=== PATIENT | female | born 2000 | race Caucasian/White ===

== ENCOUNTER 2024-11-07 01:07 | Inpatient (IN) ==
[2024-11-07] MEDS ORDERED: ACETAMINOPHEN 500 MG TAB PO PRN (01:47)
[2024-11-07] MEDS ORDERED: LIDOCAINE 1% LOCAL 20 ML VIAL INFIL PRN (01:47)
--- NOTE | 2024-11-07 01:53 | History & Physical Report ---
Date of Service November 07, 2024 Assessment & Plan (1) Spontaneous rupture of amniotic membranes: Plan: 23-year-old at 39 weeks and 5 days of gestation presenting today with spontaneous rupture of membranes, Vital signs stable afebrile, heart rate reassuring, GBS negative, Cervix favorable but not in labor, Discussed the findings I recommended induction/augmentation with oxytocin per protocol, patient desires to ambulate and not start oxytocin for few hours. If she is not in labor for the next 3 hours she wants to start oxytocin, Plans for epidural for pain, Admit, monitor, labs, expect management for now and then oxytocin per protocol if noted cervical change, All questions were answered. (2) with 39 completed weeks gestation: (3) Class 2 obesity due to excess calories without serious comorbidity with body mass index (BMI) of 37.0 to 37.9 in adult: History of Present Illness Primary Care Provider: NO PCP Patient is a 23-year-old G1, P0 at 39 weeks and 5 days of gestation who felt a gush of fluid leakage around 00 15 a.m. and continued with trickling. Patient states it was a large gush made her underwear, pants and sheet of the bed wet. It has been clear, no vaginal bleeding. She is feeling mild cramping but not real painful contractions. She reports good movements. She denies headaches, change in her vision, nausea vomiting, fever chills, leg pain. Her has been uncomplicated except 1. obesity during 2. history of depression, not on meds, 3. Rh-, received RhoGAM GBS negative Allergies Allergy/AdvReac Type Severity Reaction Status Date / Time No Known Allergies Allergy Verified 11/07/24 01:27 Patient History Medical History Class 2 obesity due to excess calories without serious comorbidity with body mass index (BMI) of 37.0 to 37.9 in adult Anemia Migraine without aura and with status migrainosus, not intractable Gastroesophageal reflux disease without esophagitis Moderate episode of recurrent major depressive disorder Social History Smoking Status: Never smoker Hx Alcohol Use: Yes Hx Substance Use: No marital status: Feels Safe at Home: Yes [employer] History No history of STDs: History of chlamydia, gonorrhea, herpes Review of Systems as per Subjective / HPI Physical Exam Constitutional: WD/WN, vitals as above well developed, well nourished and comfortable Genitourinary: normal external appearance OB Exam Abdomen: + vertex Manual OB Exam: + cervical dilation 3 cm, + cervical effacement 70% and + station high ( 1 history but engaged) OB Exam Monitor Tracing: + external uterine monitor used and + category I grossly ruptured, nitrazine positive Results & Data Vital Signs (Past 12 Hours) Vital Signs Pulse BP 11/07/24 01:24 79 143/74 H
[2024-11-07 02:57] LABS: Hematocrit (blood only) 34.8 % (37.0-47.0); Hemoglobin 11.7 g/dl (12.0-16.0); Mean Corpuscular Hemoglobin 29.5 pg (25.0-34.0); Mean Corpuscular Volume 87.9 fL (80.0-100.0); Platelet Count 205 K/uL (130-400); RDW Standard Deviation 43.8 fL (36.4-46.3); Red Blood Count 3.96 M/uL (4.20-5.40); White Blood Count 9.40 K/ul (4.8-10.8)
[2024-11-07 03:16] LABS: Alanine Aminotransferase 6.0 U/L (7-52); Albumin Globulin Ratio 1.2 (0.9-2); Albumin Level 3.4 gm/dl (3.4-5.0); Alkaline Phosphatase 146.0 U/L (34-104); Anion Gap 9.0 (3-11); Bilirubin,Total 0.3 mg/dl (0.2-1.0); Blood Urea Nitrogen 11.0 mg/dl (6-23); Calcium 9.9 mg/dl (8.6-10.3); Carbon Dioxide 22.0 mmol/L (21-32); Chloride 105.0 mmol/L (98-107); Creatinine Clr Calc Pharmacy 169.2 ml/min; Globulin 2.9 gm/dl (2.5-4.0); Glucose 90.0 mg/dl (70-99(Fasting)); Potassium 3.5 mmol/L (3.5-5.1); Sodium 136.0 mmol/L (136-145); Total Protein 6.3 gm/dl (6.0-8.3)
[2024-11-07] MEDS: LACTATED RINGER'S 1,000 ML IV PRN (05:27)
--- NOTE | 2024-11-07 05:47 | Anesthesiology Consultation ---
Date of Service November 07, 2024 Assessment & Plan (1) Encounter for pre-operative examination: Chart Review Chart Review: Acceptable Risk for Labor Epidural History Height/Weight Height: 5 ft 3 in Weight: 95.98 kg Allergies Allergy/AdvReac Type Severity Reaction Status Date / Time No Known Allergies Allergy Verified 11/07/24 01:27 Medications Home Medications Medication Instructions Recorded Confirmed Last Taken aspirin 81 mg chewable tablet 81 mg PO 11/07/24 Unknown famotidine 10 mg tablet 10 mg PO DAILY 11/07/24 11/07/24 Unknown ferrous sulfate 325 mg (65 mg 325 mg PO DAILY 11/07/24 11/07/24 Unknown iron) tablet (iron) magnesium 100 mg capsule 100 mg PO DAILY 11/07/24 11/07/24 Unknown potassium 99 mg tablet mg 11/07/24 Unknown [id number] 1 mg tab PO 11/07/24 Unknown tablet Active Medications Generic Name Dose Route Start Last Admin Trade Name Freq PRN Reason Stop Dose Admin Lactated Ringer's 1,000 mls @ 150 mls/hr 11/07/24 01:47 11/07/24 05:27 Lr IV 11/09/24 01:46 999 mls/hr .[id number] PRN Administration L&D Protocol Protocol Past Medical History Medical History Class 2 obesity due to excess calories without serious comorbidity with body mass index (BMI) of 37.0 to 37.9 in adult Anemia Migraine without aura and with status migrainosus, not intractable Gastroesophageal reflux disease without esophagitis Moderate episode of recurrent major depressive disorder Social History Smoking Status: Former smoker Smoking End Date: Pt stopped once found out Hx Alcohol Use: Yes Hx Substance Use: No substance use type: does not use Physical Exam Vital Signs Last Vital Signs Temp 36.9 C 11/07/24 01:29 Pulse 92 H 11/07/24 05:44 Resp 20 11/07/24 01:29 BP 154/81 H 11/07/24 05:13 Pulse Ox 96 11/07/24 05:44 Testing Laboratory Results 11/07/24 02:21 11/07/24 02:21 Blood Type A Negative 11/07/24 02:21 Antibody Screen NEGATIVE 11/07/24 02:21
[2024-11-07] MEDS: LIDOCAINE 2%/EPINEPHRINE 1:200,000 20 ML PF ONE (06:10)
[2024-11-07] MEDS: fentANYL 2 MCG/ML BUPIVacaine 0.125%-NSS 100ML BAG ONE (06:10)
[2024-11-07] MEDS: BUPIVACAINE 0.25% PF 30 ML VIAL ONE (06:11)
[2024-11-07] MEDS ORDERED: SODIUM CHLORIDE 0.9% PF INJ 10 ML VIAL EPI PRN (06:17)
[2024-11-07] MEDS ORDERED: ROPIVACAINE 0.5% PF 5 MG/ML 20 ML VIAL EPI PRN (06:17)
[2024-11-07] MEDS ORDERED: BUPIVACAINE 0.25% PF 30 ML VIAL EPI PRN (06:17)
[2024-11-07] MEDS ORDERED: NALOXONE HCL 1 MG in SODIUM CHLORIDE 0.9% 1,000 ML IV PRN (06:17)
[2024-11-07] MEDS ORDERED: NALOXONE HCL 0.4 MG/1 ML VIAL/CARP IV PRN (06:17)
[2024-11-07] MEDS ORDERED: LIDOCAINE 2% MPF LOCAL 5 ML VIAL EPI PRN (06:17)
[2024-11-07] MEDS: SODIUM CHLORIDE 0.9% PF INJ 10 ML VIAL ONE (06:18)
[2024-11-07] MEDS: SODIUM CHLORIDE 0.9% PF INJ 10 ML VIAL EPI STA (06:33)
[2024-11-07] MEDS: BUPIVACAINE 0.25% PF 30 ML VIAL EPI STA (06:33)
[2024-11-07] MEDS: LIDOCAINE 2%/EPINEPHRINE 1:200,000 20 ML PF EPI STA (06:33)
[2024-11-07] MEDS: ONDANSETRON INJ 2 MG/ML 2 ML VIAL IV PRN (07:09)
[2024-11-07] MEDS: OXYTOCIN 30 UNITS/NSS 30 UNITS/500 ML BAG IV PRN (08:27)
[2024-11-07] MEDS: CALCIUM CARBONATE 500 MG CHEWABLE TAB PO PRN (08:42)
[2024-11-07] MEDS: fentANYL 2 MCG/ML BUPIVacaine 0.125%-NSS 100ML BAG EPI PRN (13:10)
--- NOTE | 2024-11-07 21:37 | Labor Progress Brief Note ---
Date of Service November 07, 2024 Assessment & Plan Admission and Anticipated Discharge Date Admission Date: November 07, 2024 Physical Exam Genitourinary: Manual OB Exam: + cervical dilation 8 cm and 9 cm, + cervical effacement 100%, + station 0 and + amniotic fluid clear OB Exam Monitor Tracing: + external FHT monitor used, + external uterine monitor used, + category I and + normal FHT variability will increase Oxytocin up to 30 mU. Results & Data Vital Signs (Past 12 Hours) Vital Signs Temp Pulse Resp BP Pulse Ox 11/07/24 21:34 115 H 129/65 93 11/07/24 21:29 108 H 95 11/07/24 21:24 108 H 97 11/07/24 21:20 110 H 113/82 11/07/24 21:19 104 H 96 11/07/24 21:14 116 H 96 11/07/24 21:09 93 H 95 11/07/24 21:04 101 H 99/54 L 96 11/07/24 20:59 100 H 94 11/07/24 20:54 101 H 94 11/07/24 20:49 103 H 101/53 L 96 11/07/24 20:45 36.9 C 11/07/24 20:44 114 H 95 11/07/24 20:39 117 H 96 11/07/24 20:34 122 H 126/65 95 11/07/24 20:29 122 H 95 11/07/24 20:24 123 H 96 11/07/24 20:19 116 H 126/64 95 11/07/24 20:14 127 H 96 11/07/24 20:09 119 H 94 11/07/24 20:04 108 H 94 11/07/24 19:59 116 H 95 11/07/24 19:54 117 H 95 11/07/24 19:49 120 H 117/74 95 11/07/24 19:44 115 H 96 11/07/24 19:39 111 H 95 11/07/24 19:35 114 H 119/56 L 11/07/24 19:34 120 H 95 11/07/24 19:29 123 H 97 11/07/24 19:24 115 H 93 11/07/24 19:21 123 H 120/75 11/07/24 19:19 116 H 94 11/07/24 19:14 122 H 94 11/07/24 19:09 126 H 96 11/07/24 19:05 37.0 C 20 11/07/24 19:04 122 H 129/73 96 11/07/24 18:59 117 H 96 11/07/24 18:54 130 H 96 11/07/24 18:50 113 H 121/65 11/07/24 18:49 118 H 96 11/07/24 18:44 115 H 97 11/07/24 18:40 109 H 130/65 11/07/24 18:39 109 H 97 11/07/24 18:34 130 H 96 11/07/24 18:29 120 H 97 11/07/24 18:24 100 H 96 11/07/24 18:19 100 H 11/07/24 18:19 103 H 115/59 L 96 11/07/24 18:14 116 H 97 11/07/24 18:09 111 H 95 11/07/24 18:04 110 H 140/64 97 11/07/24 17:59 102 H 95 11/07/24 17:54 98 H 96 11/07/24 17:49 106 H 116/71 96 11/07/24 17:44 98 H 96 11/07/24 17:39 109 H 95 11/07/24 17:34 102 H 96 11/07/24 17:30 36.8 C 11/07/24 17:29 91 H 98 11/07/24 17:25 102 H 91 11/07/24 17:24 116 H 97 11/07/24 17:19 98 H 11/07/24 17:19 95 H 122/61 96 11/07/24 17:14 101 H 95 11/07/24 17:09 113 H 98 11/07/24 17:04 127 H 160/81 H 98 11/07/24 17:00 20 11/07/24 17:00 20 11/07/24 16:59 105 H 96 11/07/24 16:54 111 H 96 11/07/24 16:49 105 H 122/62 98 11/07/24 16:44 103 H 94 11/07/24 16:39 101 H 97 11/07/24 16:34 101 H 11/07/24 16:34 97 H 124/65 96 11/07/24 16:29 109 H 97 11/07/24 16:24 104 H 96 11/07/24 16:21 93 H 134/61 11/07/24 16:19 93 H 97 11/07/24 16:14 95 H 98 11/07/24 16:09 94 H 97 11/07/24 16:04 90 11/07/24 16:04 97 H 128/69 96 11/07/24 15:59 93 H 96 11/07/24 15:54 90 97 11/07/24 15:50 80 113/58 L 11/07/24 15:49 88 96 11/07/24 15:44 82 96 11/07/24 15:39 84 98 11/07/24 15:35 88 114/71 11/07/24 15:34 88 97 11/07/24 15:29 98 H 97 11/07/24 15:24 96 H 97 11/07/24 15:19 89 109/59 L 97 11/07/24 15:14 87 96 11/07/24 15:09 97 H 96 11/07/24 15:04 91 H 11/07/24 15:04 99 H 104/56 L 96 11/07/24 15:00 18 11/07/24 15:00 37.6 C H 18 11/07/24 14:59 113 H 97 11/07/24 14:54 89 96 11/07/24 14:49 80 11/07/24 14:49 85 100/51 L 96 11/07/24 14:44 80 96 11/07/24 14:39 87 97 11/07/24 14:36 91 H 105/57 L 11/07/24 14:34 84 97 11/07/24 14:29 85 95 11/07/24 14:24 112 H 97 11/07/24 14:20 85 104/51 L 11/07/24 14:19 83 95 11/07/24 14:14 79 94 11/07/24 14:09 90 94 11/07/24 14:05 83 18 102/51 L 11/07/24 14:04 86 95 11/07/24 13:59 81 94 11/07/24 13:54 79 95 11/07/24 13:50 88 101/50 L 11/07/24 13:49 83 95 11/07/24 13:44 90 95 11/07/24 13:39 97 H 96 11/07/24 13:35 98 H 108/59 L 11/07/24 13:34 96 H 94 11/07/24 13:29 92 H 94 11/07/24 13:24 90 95 11/07/24 13:20 99 H 98/54 L 11/07/24 13:19 97 H 95 11/07/24 13:14 93 H 95 11/07/24 13:09 111 H 96 11/07/24 13:05 37.0 C 94 H 18 107/61 11/07/24 13:04 113 H 96 11/07/24 12:59 100 H 97 11/07/24 12:54 96 H 96 11/07/24 12:49 93 H 118/56 L 96 11/07/24 12:44 99 H 96 11/07/24 12:39 97 H 96 11/07/24 12:35 92 H 134/60 11/07/24 12:34 92 H 96 11/07/24 12:29 98 H 95 11/07/24 12:24 117 H 96 11/07/24 12:19 113 H 121/69 96 11/07/24 12:14 103 H 96 11/07/24 12:09 108 H 96 11/07/24 12:04 82 11/07/24 12:04 88 132/66 97 11/07/24 12:02 20 11/07/24 12:02 20 11/07/24 11:59 88 95 11/07/24 11:54 98 H 91 11/07/24 11:49 94 H 129/69 95 11/07/24 11:44 77 95 11/07/24 11:39 91 H 98 11/07/24 11:34 86 11/07/24 11:34 85 135/63 97 11/07/24 11:29 92 H 97 11/07/24 11:24 104 H 97 11/07/24 11:20 85 131/62 11/07/24 11:19 93 H 97 11/07/24 11:14 79 95 11/07/24 11:09 87 97 11/07/24 11:05 89 128/61 11/07/24 11:04 91 H 96 11/07/24 11:02 18 11/07/24 11:02 36.8 C 18 11/07/24 10:59 89 95 11/07/24 10:54 80 96 11/07/24 10:49 72 114/56 L 96 11/07/24 10:44 84 95 11/07/24 10:39 92 H 96 11/07/24 10:34 96 H 124/60 97 11/07/24 10:29 101 H 96 11/07/24 10:24 100 H 95 11/07/24 10:19 91 H 124/60 96 11/07/24 10:14 102 H 95 11/07/24 10:09 96 H 96 11/07/24 10:04 101 H 134/82 96 11/07/24 10:01 20 11/07/24 10:01 20 11/07/24 09:59 105 H 95 11/07/24 09:54 94 H 95 11/07/24 09:49 96 H 133/77 96 11/07/24 09:44 110 H 95 11/07/24 09:39 100 H 96
[2024-11-08] MEDS ORDERED: AZITHROMYCIN 500 MG/255 ML BAG IV SCH (06:00)
[2024-11-08] MEDS: fentANYL 2 MCG/ML BUPIVacaine 0.125%-NSS 100ML BAG ONE ×2 (07:02→18:24)
--- NOTE | 2024-11-08 07:03 | Labor Progress Brief Note ---
Date of Service November 08, 2024 Assessment & Plan Admission and Anticipated Discharge Date Admission Date: November 07, 2024 Physical Exam Genitourinary: Manual OB Exam: + cervical dilation 10 cm, + cervical effacement 100%, + station 0 and + 1 and + amniotic fluid clear OB Exam Monitor Tracing: + external FHT monitor used, + external uterine monitor used, + category I and + normal FHT variability will start pushing. caput noted. Results & Data Vital Signs (Past 12 Hours) Vital Signs Temp Pulse Resp BP Pulse Ox 11/08/24 06:59 138 H 92 11/08/24 06:54 134 H 96 11/08/24 06:51 123 H 88 L 11/08/24 06:49 128 H 97 11/08/24 06:44 142 H 96 11/08/24 06:39 139 H 96 11/08/24 06:34 148 H 128/61 96 11/08/24 06:29 147 H 95 11/08/24 06:24 139 H 95 11/08/24 06:19 122 H 135/75 95 11/08/24 06:14 133 H 94 11/08/24 06:13 143 H 90 11/08/24 06:09 138 H 95 11/08/24 06:04 127 H 136/81 94 11/08/24 05:59 123 H 95 11/08/24 05:54 134 H 97 11/08/24 05:49 126 H 11/08/24 05:49 129 H 140/82 96 11/08/24 05:44 129 H 96 11/08/24 05:39 123 H 94 11/08/24 05:35 118 H 108/56 L 11/08/24 05:34 126 H 95 11/08/24 05:29 122 H 97 11/08/24 05:26 36.8 C 11/08/24 05:24 127 H 96 11/08/24 05:19 108 H 100/55 L 94 11/08/24 05:14 109 H 94 11/08/24 05:09 109 H 95 11/08/24 05:04 108 H 100/51 L 95 11/08/24 04:59 111 H 95 11/08/24 04:54 129 H 95 11/08/24 04:49 122 H 124/57 L 94 11/08/24 04:44 120 H 94 11/08/24 04:39 118 H 94 11/08/24 04:34 118 H 117/56 L 94 11/08/24 04:29 121 H 94 11/08/24 04:24 121 H 94 11/08/24 04:20 126 H 131/62 11/08/24 04:19 137 H 96 11/08/24 04:14 126 H 94 11/08/24 04:09 136 H 95 11/08/24 04:04 130 H 129/62 95 11/08/24 03:59 134 H 95 11/08/24 03:54 131 H 95 11/08/24 03:49 134 H 121/59 L 95 11/08/24 03:44 131 H 95 11/08/24 03:39 139 H 95 11/08/24 03:35 37.0 C 137 H 131/65 11/08/24 03:34 138 H 94 11/08/24 03:29 126 H 95 11/08/24 03:24 125 H 94 11/08/24 03:19 111 H 99/50 L 93 11/08/24 03:14 111 H 93 11/08/24 03:09 108 H 93 11/08/24 03:04 109 H 100/50 L 93 11/08/24 02:59 112 H 94 11/08/24 02:54 117 H 94 11/08/24 02:49 115 H 108/55 L 95 11/08/24 02:44 133 H 94 11/08/24 02:39 139 H 95 11/08/24 02:34 133 H 147/72 H 94 11/08/24 02:29 129 H 94 11/08/24 02:24 127 H 93 11/08/24 02:20 125 H 134/69 11/08/24 02:19 133 H 94 11/08/24 02:14 121 H 94 11/08/24 02:09 123 H 94 11/08/24 02:04 120 H 136/67 94 11/08/24 01:59 128 H 94 11/08/24 01:54 130 H 94 11/08/24 01:50 121 H 144/72 H 11/08/24 01:49 129 H 94 11/08/24 01:44 144 H 97 11/08/24 01:39 123 H 95 11/08/24 01:34 129 H 124/61 95 11/08/24 01:29 119 H 95 11/08/24 01:24 124 H 94 11/08/24 01:19 130 H 147/70 H 98 11/08/24 01:14 137 H 95 11/08/24 01:09 139 H 96 11/08/24 01:05 137 H 130/64 11/08/24 01:04 139 H 96 11/08/24 00:59 140 H 97 11/08/24 00:54 134 H 95 11/08/24 00:50 129 H 120/58 L 11/08/24 00:49 130 H 95 11/08/24 00:44 140 H 96 11/08/24 00:39 36.9 C 137 H 96 11/08/24 00:34 125 H 144/70 H 96 11/08/24 00:29 121 H 96 11/08/24 00:24 124 H 95 11/08/24 00:19 103 H 84/46 L 94 11/08/24 00:14 101 H 94 11/08/24 00:09 106 H 93 11/08/24 00:04 105 H 93/47 L 94 11/07/24 23:59 104 H 94 11/07/24 23:54 101 H 94 11/07/24 23:49 105 H 94/50 L 95 11/07/24 23:44 110 H 95 11/07/24 23:39 113 H 95 11/07/24 23:35 123 H 128/59 L 11/07/24 23:34 129 H 96 11/07/24 23:29 128 H 96 11/07/24 23:24 117 H 96 11/07/24 23:20 115 H 123/58 L 11/07/24 23:19 110 H 94 11/07/24 23:14 109 H 94 11/07/24 23:09 117 H 95 11/07/24 23:04 116 H 122/59 L 95 11/07/24 23:00 37.0 C 11/07/24 22:59 111 H 96 11/07/24 22:54 108 H 95 11/07/24 22:49 110 H 95 11/07/24 22:44 115 H 95 11/07/24 22:39 119 H 97 11/07/24 22:35 111 H 120/59 L 11/07/24 22:34 109 H 95 11/07/24 22:29 105 H 96 11/07/24 22:24 99 H 96 11/07/24 22:19 95 11/07/24 22:19 104 H 11/07/24 22:19 96 H 104/51 L 11/07/24 22:14 97 H 94 11/07/24 22:09 91 H 95 11/07/24 22:04 94 H 106/53 L 95 11/07/24 21:59 92 H 94 11/07/24 21:54 93 H 94 11/07/24 21:49 94 H 108/53 L 96 11/07/24 21:44 102 H 96 11/07/24 21:39 106 H 94 11/07/24 21:34 115 H 129/65 93 11/07/24 21:29 108 H 95 11/07/24 21:24 108 H 97 11/07/24 21:20 110 H 113/82 11/07/24 21:19 104 H 96 11/07/24 21:14 116 H 96 11/07/24 21:09 93 H 95 11/07/24 21:04 101 H 99/54 L 96 11/07/24 20:59 100 H 94 11/07/24 20:54 101 H 94 11/07/24 20:49 103 H 101/53 L 96 11/07/24 20:45 36.9 C 11/07/24 20:44 114 H 95 11/07/24 20:39 117 H 96 11/07/24 20:34 122 H 126/65 95 11/07/24 20:29 122 H 95 11/07/24 20:24 123 H 96 11/07/24 20:19 116 H 126/64 95 11/07/24 20:14 127 H 96 11/07/24 20:09 119 H 94 11/07/24 20:04 108 H 94 11/07/24 19:59 116 H 95 11/07/24 19:54 117 H 95 11/07/24 19:49 120 H 117/74 95 11/07/24 19:44 115 H 96 11/07/24 19:39 111 H 95 11/07/24 19:35 114 H 119/56 L 11/07/24 19:34 120 H 95 11/07/24 19:29 123 H 97 11/07/24 19:24 115 H 93 11/07/24 19:21 123 H 120/75 11/07/24 19:19 116 H 94 11/07/24 19:14 122 H 94 11/07/24 19:09 126 H 96 11/07/24 19:05 37.0 C 20 11/07/24 19:04 122 H 129/73 96
[2024-11-08] MEDS: ONDANSETRON INJ 2 MG/ML 2 ML VIAL ONE (09:16)
[2024-11-08] MEDS: OXYTOCIN 30 UNITS/NSS 30 UNITS/500 ML BAG IV PRN (09:25)
--- NOTE | 2024-11-08 11:27 | Labor Progress Brief Note ---
Date of Service November 08, 2024 Assessment & Plan Admission and Anticipated Discharge Date Admission Date: November 07, 2024 Physical Exam Genitourinary: Manual OB Exam: + cervical dilation 10 cm, + cervical effacement 100%, + station + 1 and + amniotic fluid clear OB Exam Monitor Tracing: + external FHT monitor used, + external uterine monitor used, + category I and + normal FHT variability patient has been pushing almost 4 hours and wants to continue. I gave her option for but she would prefer to continue to push at this point. Results & Data Vital Signs (Past 12 Hours) Vital Signs Temp Pulse Resp BP Pulse Ox 11/08/24 11:24 129 H 97 11/08/24 11:21 96 H 138/79 11/08/24 11:19 125 H 97 11/08/24 11:18 106 H 87 L 11/08/24 11:17 106 H 148/90 H 11/08/24 11:14 114 H 75 L 11/08/24 11:11 105 H 86 L 11/08/24 11:09 94 H 94 11/08/24 11:05 104 H 83 L 11/08/24 11:04 121 H 86 L 11/08/24 10:59 90 11/08/24 10:59 112 H 11/08/24 10:59 102 H 97 11/08/24 10:54 145 H 97 11/08/24 10:51 121 H 181/116 H 11/08/24 10:49 132 H 96 11/08/24 10:44 111 H 85 L 11/08/24 10:39 137 H 96 11/08/24 10:37 87 89 L 11/08/24 10:34 94 H 94 11/08/24 10:29 90 11/08/24 10:29 96 H 11/08/24 10:29 106 H 95 11/08/24 10:24 95 H 94 11/08/24 10:22 106 H 87 L 11/08/24 10:20 88 137/63 11/08/24 10:19 104 H 95 11/08/24 10:16 114 H 91 11/08/24 10:14 95 H 94 11/08/24 10:09 95 H 93 11/08/24 10:04 109 H 95 11/08/24 09:59 98 H 93 11/08/24 09:54 109 H 90 11/08/24 09:50 105 H 134/89 11/08/24 09:49 117 H 95 11/08/24 09:48 108 H 85 L 11/08/24 09:44 117 H 95 11/08/24 09:42 106 H 91 11/08/24 09:39 118 H 95 11/08/24 09:37 113 H 91 11/08/24 09:34 133 H 95 11/08/24 09:29 128 H 96 11/08/24 09:27 20 11/08/24 09:27 36.9 C 20 11/08/24 09:24 125 H 95 11/08/24 09:19 111 H 94 11/08/24 09:14 111 H 96 11/08/24 09:13 121 H 87 L 11/08/24 09:09 108 H 92 11/08/24 09:08 115 H 87 L 11/08/24 09:06 107 H 143/73 H 11/08/24 09:04 115 H 92 11/08/24 09:02 115 H 82 L 11/08/24 08:59 103 H 82 L 11/08/24 08:57 114 H 85 L 11/08/24 08:54 98 H 95 11/08/24 08:52 107 H 89 L 11/08/24 08:51 113 H 161/75 H 11/08/24 08:49 115 H 95 11/08/24 08:45 109 H 90 11/08/24 08:44 118 H 97 11/08/24 08:39 119 H 87 L 11/08/24 08:35 116 H 150/68 H 11/08/24 08:34 128 H 86 L 11/08/24 08:29 139 H 98 11/08/24 08:24 129 H 91 11/08/24 08:21 106 H 142/66 H 11/08/24 08:20 105 H 193/123 H 11/08/24 08:19 111 H 94 11/08/24 08:14 113 H 93 11/08/24 08:13 114 H 89 L 11/08/24 08:09 111 H 89 L 11/08/24 08:08 113 H 89 L 11/08/24 08:05 113 H 127/62 11/08/24 08:04 116 H 92 11/08/24 08:03 114 H 91 11/08/24 07:59 125 H 95 11/08/24 07:57 133 H 91 11/08/24 07:54 118 H 95 11/08/24 07:52 122 H 87 L 11/08/24 07:49 121 H 93 11/08/24 07:44 152 H 94 11/08/24 07:39 136 H 91 11/08/24 07:35 117 H 170/70 H 11/08/24 07:34 104 H 96 11/08/24 07:33 125 H 90 11/08/24 07:29 121 H 97 11/08/24 07:24 116 H 96 11/08/24 07:22 127 H 89 L 11/08/24 07:19 116 H 149/69 H 96 11/08/24 07:15 123 H 87 L 11/08/24 07:14 117 H 95 11/08/24 07:09 115 H 92 11/08/24 07:06 20 11/08/24 07:06 37.0 C 20 11/08/24 07:05 37 C 20 11/08/24 07:04 113 H 11/08/24 07:04 115 H 134/66 95 11/08/24 06:59 138 H 92 11/08/24 06:54 134 H 96 11/08/24 06:51 123 H 88 L 11/08/24 06:49 128 H 97 11/08/24 06:44 142 H 96 11/08/24 06:39 139 H 96 11/08/24 06:34 148 H 128/61 96 11/08/24 06:29 147 H 95 11/08/24 06:24 139 H 95 11/08/24 06:19 122 H 135/75 95 11/08/24 06:14 133 H 94 11/08/24 06:13 143 H 90 11/08/24 06:09 138 H 95 11/08/24 06:04 127 H 136/81 94 11/08/24 05:59 123 H 95 11/08/24 05:54 134 H 97 11/08/24 05:49 126 H 11/08/24 05:49 129 H 140/82 96 11/08/24 05:44 129 H 96 11/08/24 05:39 123 H 94 11/08/24 05:35 118 H 108/56 L 11/08/24 05:34 126 H 95 11/08/24 05:29 122 H 97 11/08/24 05:26 36.8 C 11/08/24 05:24 127 H 96 11/08/24 05:19 108 H 100/55 L 94 11/08/24 05:14 109 H 94 11/08/24 05:09 109 H 95 11/08/24 05:04 108 H 100/51 L 95 11/08/24 04:59 111 H 95 11/08/24 04:54 129 H 95 11/08/24 04:49 122 H 124/57 L 94 11/08/24 04:44 120 H 94 11/08/24 04:39 118 H 94 11/08/24 04:34 118 H 117/56 L 94 11/08/24 04:29 121 H 94 11/08/24 04:24 121 H 94 11/08/24 04:20 126 H 131/62 11/08/24 04:19 137 H 96 11/08/24 04:14 126 H 94 11/08/24 04:09 136 H 95 11/08/24 04:04 130 H 129/62 95 11/08/24 03:59 134 H 95 11/08/24 03:54 131 H 95 11/08/24 03:49 134 H 121/59 L 95 11/08/24 03:44 131 H 95 11/08/24 03:39 139 H 95 11/08/24 03:35 37.0 C 137 H 131/65 11/08/24 03:34 138 H 94 11/08/24 03:29 126 H 95 11/08/24 03:24 125 H 94 11/08/24 03:19 111 H 99/50 L 93 11/08/24 03:14 111 H 93 11/08/24 03:09 108 H 93 11/08/24 03:04 109 H 100/50 L 93 11/08/24 02:59 112 H 94 11/08/24 02:54 117 H 94 11/08/24 02:49 115 H 108/55 L 95 11/08/24 02:44 133 H 94 11/08/24 02:39 139 H 95 11/08/24 02:34 133 H 147/72 H 94 11/08/24 02:29 129 H 94 11/08/24 02:24 127 H 93 11/08/24 02:20 125 H 134/69 11/08/24 02:19 133 H 94 11/08/24 02:14 121 H 94 11/08/24 02:09 123 H 94 11/08/24 02:04 120 H 136/67 94 11/08/24 01:59 128 H 94 11/08/24 01:54 130 H 94 11/08/24 01:50 121 H 144/72 H 11/08/24 01:49 129 H 94 11/08/24 01:44 144 H 97 11/08/24 01:39 123 H 95 11/08/24 01:34 129 H 124/61 95 11/08/24 01:29 119 H 95 11/08/24 01:24 124 H 94 11/08/24 01:19 130 H 147/70 H 98 11/08/24 01:14 137 H 95 11/08/24 01:09 139 H 96 11/08/24 01:05 137 H 130/64 11/08/24 01:04 139 H 96 11/08/24 00:59 140 H 97 11/08/24 00:54 134 H 95 11/08/24 00:50 129 H 120/58 L 11/08/24 00:49 130 H 95 11/08/24 00:44 140 H 96 11/08/24 00:39 36.9 C 137 H 96 11/08/24 00:34 125 H 144/70 H 96 11/08/24 00:29 121 H 96 11/08/24 00:24 124 H 95 11/08/24 00:19 103 H 84/46 L 94 11/08/24 00:14 101 H 94 11/08/24 00:09 106 H 93 11/08/24 00:04 105 H 93/47 L 94 11/07/24 23:59 104 H 94 11/07/24 23:54 101 H 94 11/07/24 23:49 105 H 94/50 L 95 11/07/24 23:44 110 H 95 11/07/24 23:39 113 H 95 11/07/24 23:35 123 H 128/59 L 11/07/24 23:34 129 H 96 11/07/24 23:29 128 H 96
[2024-11-08] MEDS ORDERED: LIDOCAINE 2%/EPINEPHRINE 1:200,000 20 ML PF ONE (12:05)
--- NOTE | 2024-11-08 12:19 | Anesthesia Procedure Note ---
Date of Service November 08, 2024 Anesthesia Post Epidural Note Vital Signs Vital Signs: Temp Pulse Resp BP Pulse Ox 36.9 C 106 H 20 119/63 94 11/08/24 09:27 11/08/24 12:16 11/08/24 09:27 11/08/24 12:16 11/08/24 12:14 Pain Intensity Abdomen: Pain Intensity: 0 Notes Mental Status: alert / awake / arousable Nausea / Vomiting: adequately controlled Pain: adequately controlled Airway Patency, RR, SpO2: stable & adequate BP & HR: stable & adequate Hydration State: stable & adequate Neuraxial Anesthesia: was administered and sensory block is resolving Anesthetic Complications: no major complications apparent and Pt Satisfied with anesthetic care Epidural: Removed without complications and With tip intact
--- NOTE | 2024-11-08 12:20 | Anesthesia Procedure Note ---
Date of Service November 08, 2024 Anesthesia Epidural Re-Dose Vital Signs Temp Pulse Resp BP Pulse Ox 36.9 C 106 H 20 119/63 94 11/08/24 09:27 11/08/24 12:16 11/08/24 09:27 11/08/24 12:16 11/08/24 12:14 Notes Pain Intensity: 0 Dilatation (cm): 10.0 Effacement (%): 100 Called by nursing to evaluate epidural as the patient is having increased pain. The epidural was re-dosed with the following medications (all medications via epidural route) after negative aspiration of the epidural catheter for CSF/HEME. 2% lidocaine 5ml with fentanyl 100mcg. After Epidural Re-Dose Mental Status: alert / awake / arousable Pain: improving with treatment Airway Patency, RR, SpO2: stable & adequate BP & HR: stable & adequate
--- NOTE | 2024-11-08 15:49 | Labor Progress Brief Note ---
Date of Service November 08, 2024 Assessment & Plan Admission and Anticipated Discharge Date Admission Date: November 07, 2024 Physical Exam Genitourinary: OB Exam Monitor Tracing: + external FHT monitor used, + external uterine monitor used, + category I and + normal FHT variability patient now wants to go forward with a as she is exhausted and does not want to push any further. Consents signed. Patient and family explained the risks and benefits of the surgery and are in agreement. Results & Data Vital Signs (Past 12 Hours) Vital Signs Temp Pulse Resp BP Pulse Ox 11/08/24 15:44 117 H 98 11/08/24 15:39 120 H 98 11/08/24 15:34 128 H 97 11/08/24 15:31 116 H 177/101 H 11/08/24 15:29 114 H 97 11/08/24 15:24 110 H 97 11/08/24 15:23 119 H 89 L 11/08/24 15:19 110 H 97 11/08/24 15:18 126 H 114/75 11/08/24 15:17 120 H 89 L 11/08/24 15:14 132 H 98 11/08/24 15:09 131 H 98 11/08/24 15:04 113 H 95 11/08/24 15:00 108 H 134/65 11/08/24 14:59 114 H 95 11/08/24 14:54 109 H 95 11/08/24 14:49 107 H 95 11/08/24 14:45 109 H 120/59 L 11/08/24 14:44 110 H 96 11/08/24 14:39 113 H 96 11/08/24 14:34 103 H 95 11/08/24 14:30 36.9 C 98 H 20 113/56 L 11/08/24 14:29 98 H 96 11/08/24 14:24 86 L 11/08/24 14:24 113 H 11/08/24 14:24 104 H 97 11/08/24 14:19 96 H 95 11/08/24 14:16 107 H 137/82 11/08/24 14:14 106 H 98 11/08/24 14:09 107 H 97 11/08/24 14:04 103 H 96 11/08/24 14:00 99 H 123/64 11/08/24 13:59 102 H 94 11/08/24 13:54 103 H 95 11/08/24 13:49 95 H 97 11/08/24 13:47 103 H 120/63 11/08/24 13:44 97 H 95 11/08/24 13:39 95 H 95 11/08/24 13:34 99 H 95 11/08/24 13:29 93 H 94 11/08/24 13:24 94 H 93 11/08/24 13:23 95 H 91 11/08/24 13:19 103 H 94 11/08/24 13:16 91 H 115/67 11/08/24 13:15 110 H 91 11/08/24 13:14 92 H 92 11/08/24 13:09 94 H 92 11/08/24 13:04 92 H 93 11/08/24 13:01 93 H 104/55 L 11/08/24 12:59 93 H 94 11/08/24 12:54 97 H 94 11/08/24 12:49 96 H 94 11/08/24 12:45 96 H 108/54 L 11/08/24 12:44 96 H 94 11/08/24 12:40 105 H 112/56 L 89 L 11/08/24 12:39 102 H 96 11/08/24 12:34 111 H 110/53 L 97 11/08/24 12:29 111 H 104/54 L 96 11/08/24 12:24 115 H 106/55 L 96 11/08/24 12:22 113 H 110/57 L 11/08/24 12:20 126 H 113/58 L 11/08/24 12:19 103 H 95 11/08/24 12:18 102 H 109/59 L 11/08/24 12:16 106 H 119/63 11/08/24 12:14 93 H 11/08/24 12:14 94 H 126/62 94 11/08/24 12:13 85 121/56 L 11/08/24 12:09 89 L 11/08/24 12:09 95 H 11/08/24 12:09 114 H 96 11/08/24 12:04 102 H 93 11/08/24 12:02 109 H 88 L 11/08/24 11:59 118 H 96 11/08/24 11:56 125 H 89 L 11/08/24 11:54 112 H 95 11/08/24 11:49 107 H 93 11/08/24 11:45 117 H 87 L 11/08/24 11:44 116 H 94 11/08/24 11:39 119 H 95 11/08/24 11:34 101 H 96 11/08/24 11:33 118 H 91 11/08/24 11:29 104 H 97 11/08/24 11:24 129 H 97 11/08/24 11:21 96 H 138/79 11/08/24 11:19 125 H 97 11/08/24 11:18 106 H 87 L 11/08/24 11:17 106 H 148/90 H 11/08/24 11:14 114 H 75 L 11/08/24 11:11 105 H 86 L 11/08/24 11:09 94 H 94 11/08/24 11:05 104 H 83 L 11/08/24 11:04 121 H 86 L 11/08/24 10:59 90 11/08/24 10:59 112 H 11/08/24 10:59 102 H 97 11/08/24 10:54 145 H 97 11/08/24 10:51 121 H 181/116 H 11/08/24 10:49 132 H 96 11/08/24 10:44 111 H 85 L 11/08/24 10:39 137 H 96 11/08/24 10:37 87 89 L 11/08/24 10:34 94 H 94 11/08/24 10:29 90 11/08/24 10:29 96 H 11/08/24 10:29 106 H 95 11/08/24 10:24 95 H 94 11/08/24 10:22 106 H 87 L 11/08/24 10:20 88 137/63 11/08/24 10:19 104 H 95 11/08/24 10:16 114 H 91 11/08/24 10:14 95 H 94 11/08/24 10:09 95 H 93 11/08/24 10:04 109 H 95 11/08/24 09:59 98 H 93 11/08/24 09:54 109 H 90 11/08/24 09:50 105 H 134/89 11/08/24 09:49 117 H 95 11/08/24 09:48 108 H 85 L 11/08/24 09:44 117 H 95 11/08/24 09:42 106 H 91 11/08/24 09:39 118 H 95 11/08/24 09:37 113 H 91 11/08/24 09:34 133 H 95 11/08/24 09:29 128 H 96 11/08/24 09:27 20 11/08/24 09:27 36.9 C 20 11/08/24 09:24 125 H 95 11/08/24 09:19 111 H 94 11/08/24 09:14 111 H 96 11/08/24 09:13 121 H 87 L 11/08/24 09:09 108 H 92 11/08/24 09:08 115 H 87 L 11/08/24 09:06 107 H 143/73 H 11/08/24 09:04 115 H 92 11/08/24 09:02 115 H 82 L 11/08/24 08:59 103 H 82 L 11/08/24 08:57 114 H 85 L 11/08/24 08:54 98 H 95 11/08/24 08:52 107 H 89 L 11/08/24 08:51 113 H 161/75 H 11/08/24 08:49 115 H 95 11/08/24 08:45 109 H 90 11/08/24 08:44 118 H 97 11/08/24 08:39 119 H 87 L 11/08/24 08:35 116 H 150/68 H 11/08/24 08:34 128 H 86 L 11/08/24 08:29 139 H 98 11/08/24 08:24 129 H 91 11/08/24 08:21 106 H 142/66 H 11/08/24 08:20 105 H 193/123 H 11/08/24 08:19 111 H 94 11/08/24 08:14 113 H 93 11/08/24 08:13 114 H 89 L 11/08/24 08:09 111 H 89 L 11/08/24 08:08 113 H 89 L 11/08/24 08:05 113 H 127/62 11/08/24 08:04 116 H 92 11/08/24 08:03 114 H 91 11/08/24 07:59 125 H 95 11/08/24 07:57 133 H 91 11/08/24 07:54 118 H 95 11/08/24 07:52 122 H 87 L 11/08/24 07:49 121 H 93 11/08/24 07:44 152 H 94 11/08/24 07:39 136 H 91 11/08/24 07:35 117 H 170/70 H 11/08/24 07:34 104 H 96 11/08/24 07:33 125 H 90 11/08/24 07:29 121 H 97 11/08/24 07:24 116 H 96 11/08/24 07:22 127 H 89 L 11/08/24 07:19 116 H 149/69 H 96 11/08/24 07:15 123 H 87 L 11/08/24 07:14 117 H 95 11/08/24 07:09 115 H 92 11/08/24 07:06 20 11/08/24 07:06 37.0 C 20 11/08/24 07:05 37 C 20 11/08/24 07:04 113 H 11/08/24 07:04 115 H 134/66 95 11/08/24 06:59 138 H 92 11/08/24 06:54 134 H 96 11/08/24 06:51 123 H 88 L 11/08/24 06:49 128 H 97 11/08/24 06:44 142 H 96 11/08/24 06:39 139 H 96 11/08/24 06:34 148 H 128/61 96 11/08/24 06:29 147 H 95 11/08/24 06:24 139 H 95 11/08/24 06:19 122 H 135/75 95 11/08/24 06:14 133 H 94 11/08/24 06:13 143 H 90 11/08/24 06:09 138 H 95 11/08/24 06:04 127 H 136/81 94 11/08/24 05:59 123 H 95 11/08/24 05:54 134 H 97 11/08/24 05:49 126 H 11/08/24 05:49 129 H 140/82 96 11/08/24 05:44 129 H 96 11/08/24 05:39 123 H 94 11/08/24 05:35 118 H 108/56 L 11/08/24 05:34 126 H 95 11/08/24 05:29 122 H 97 11/08/24 05:26 36.8 C 11/08/24 05:24 127 H 96 11/08/24 05:19 108 H 100/55 L 94 11/08/24 05:14 109 H 94 11/08/24 05:09 109 H 95 11/08/24 05:04 108 H 100/51 L 95 11/08/24 04:59 111 H 95 11/08/24 04:54 129 H 95 11/08/24 04:49 122 H 124/57 L 94 11/08/24 04:44 120 H 94 11/08/24 04:39 118 H 94 11/08/24 04:34 118 H 117/56 L 94 11/08/24 04:29 121 H 94 11/08/24 04:24 121 H 94 11/08/24 04:20 126 H 131/62 11/08/24 04:19 137 H 96 11/08/24 04:14 126 H 94 11/08/24 04:09 136 H 95 11/08/24 04:04 130 H 129/62 95 11/08/24 03:59 134 H 95 11/08/24 03:54 131 H 95 11/08/24 03:49 134 H 121/59 L 95
[2024-11-08] MEDS: CITRIC ACID/SODIUM CITRATE 15 ML UDC PO SCH (15:58)
[2024-11-08] MEDS: ACETAMINOPHEN 500 MG TAB PO SCH (15:58)
[2024-11-08] MEDS: ceFAZolin 3000MG 3,000 MG/72.5 ML BAG IV SCH (15:59)
[2024-11-08] MEDS ORDERED: LIDOCAINE 2% MPF LOCAL 5 ML VIAL ONE (16:10)
[2024-11-08] MEDS ORDERED: MoRPHine SULFATE PF 1 MG/ML 10 ML AMP/VIAL ONE (16:11)
[2024-11-08] MEDS ORDERED: ONDANSETRON INJ 2 MG/ML 2 ML VIAL ONE (16:29)
[2024-11-08] MEDS ORDERED: DEXAMETHASONE SOD INJ 4 MG/ML VIAL ONE (16:34)
[2024-11-08] MEDS ORDERED: OXYTOCIN 10 UNITS/ML VIAL ONE (16:35)
[2024-11-08] MEDS: OXYTOCIN 20 UNITS/LR 1,002 ML IV SCH (16:40)
--- NOTE | 2024-11-08 17:11 | Anesthesia Procedure Note ---
Date of Service November 08, 2024 Anesthesia Post Epidural Note Vital Signs Vital Signs: Temp Pulse Resp BP Pulse Ox 36.9 C 141 H 20 153/65 H 97 11/08/24 14:30 11/08/24 16:05 11/08/24 14:30 11/08/24 16:05 11/08/24 16:04 Pain Intensity Abdomen: Pain Intensity: 0 Notes Mental Status: alert / awake / arousable Nausea / Vomiting: adequately controlled Pain: adequately controlled Airway Patency, RR, SpO2: stable & adequate BP & HR: stable & adequate Hydration State: stable & adequate Neuraxial Anesthesia: was administered and sensory block is resolving Anesthetic Complications: no major complications apparent and Pt Satisfied with anesthetic care Epidural: Removed without complications and With tip intact
[2024-11-08] MEDS ORDERED: SENNA 8.6 MG TAB PO PRN (17:25)
[2024-11-08] MEDS ORDERED: HYDROCORTISONE ACETATE 25 MG SUPP PR PRN (17:25)
[2024-11-08] MEDS ORDERED: MAGNESIUM HYDROXIDE SUSP 30 ML UDC PO PRN (17:25)
[2024-11-08] MEDS ORDERED: BENZOCAINE 20% SPRY 85 APPLN/85 GM CAN EXT PRN (17:25)
[2024-11-08] MEDS: KETOROLAC 30 MG/ML VIAL ONE (17:26)
--- NOTE | 2024-11-08 17:29 | Post Operative Brief Note ---
Immediate Post Op Note Date of Surgery November 08, 2024 Pre & Post Diagnosis Operation Date: 11/08/24 16:15 Pre-Op Diagnosis: 1.Arrest of descent 2. Occiput posterior 3. Prolonged rupture of membranes 4. Post date Post-Op Diagnosis: Same as pre operative I identified the patient and participated in the time-out.: Yes Procedure Operation Date: 11/08/24 16:15 Actual Procedures p Section in LD for [facility] at 1631 on 11/08/24 - Yossi Tatum MD Surgeon Yossi Tatum MD Site Inspector Jessica RN Quantitative Blood Loss (QBL) 855 Findings Consistent with Post-Op Diagnosis live male direct OP Apgars 10/23 weight 8-6 Fluids 1000 ml. Specimens Specimen Description: 1. [facility] on 11/08/24 at 1631 2. Placenta- exam 3. Cord blood Drains Lawrence Catheter Anesthesia Type Labor Epidural Complications none Disposition Accompanied Patient To Recovery: Yes Disposition: L&D Overlapping Procedure I was present for: the critical portions of procedure. I was immediately available: during the entire case. Back up surgeon: was not required during procedure.
--- NOTE | 2024-11-08 17:33 | Operative Report ---
Post Operative Report Pre & Post Diagnosis Operation Date: 11/08/24 16:15 Pre-Op Diagnosis: 1.Arrest of descent 2. Occiput posterior 3. Prolonged rupture of membranes 4. Post date Post-Op Diagnosis: Same as pre operative I identified the patient and participated in the time-out.: Yes Procedure Operation Date: 11/08/24 16:15 Actual Procedures p Section in LD for [facility] at 1631 on 11/08/24 - Yossi Tatum MD Surgeon Yossi Tatum MD Elevator Erector MIROSLAVA Lopez Estimated Blood Loss 855 Findings Consistent with Post-Op Diagnosis live male direct OP Apgars 9/9 weight 8-6 Fluids 1000 ml. Specimens placenta cord blood Drains none Complications none Indications direct OP failure to descend prolonged rupture of membranes post dates Description of Procedure Satisfactory epidural anesthesia the patient was prepped draped usual sterile fashion. A timeout was called the patient was identified antibiotics were given preop. A low Pfannenstiel incision was made and carried the incision down into the abdominal cavity in successive layers without difficulty upon entering into the abdominal cavity the bladder flap was then made with sharp dissection using Metzenbaum scissors bladder blade was replaced low segment transverse incision over the lower uterine segment was made the incision was then nicked amniotic fluid was clear the incision was widened in the AP diameter. The was then delivered with the aid of fundal pressure it was direct OP with an asynclitic head noted. There was a 1 minute cord delay.. Delivery was a live male Apgars were 9 and 9 weight was 8 pounds 6 ounces. Cord blood was then obtained and the placenta was then delivered spontaneously and intact. The uterus was then exteriorized with forceps and then placed on both angles the inferior margin of the uterus was noted to be atonic and Methergine was given IV of the lap pad was then used to clean the inside of the uterus of all clots and debris. Tubes ovaries bilaterally were found to be within normal limits the uterus was then closed in a double layer closure with 0 Vicryl suture in a continuous interlocking fashion. The initial sponge, needle and instrument count were found to be correct. The uterus was then placed back into the normal anatomical position. The fascia was then reapproximated using 0 Vicryl suture in a continuous fashion followed by a subcuticular stitch of 3-0 plain suture followed by 4-0 Monocryl subcuticular killer stitch for the skin Steri-Strips were then applied to the dressing along with Telfa and ABD pad. The QBL was 855 mL total fluids 1 L. Lawrence catheter was draining 150 mL of clear urine. The final sponge needle instrument count was found to be correct. The patient was then taken to the recovery room in stable condition I attest to the content of the Intraoperative Record and any orders documented therein. Any exceptions are noted below. please not that my sales and marketing assistant was needed to provide retraction, aid in fundal pressure, closure of uterus and abdomen
[2024-11-08] MEDS ORDERED: ACETAMINOPHEN 1,000 MG/100 ML VIAL IV PRN (17:43)
[2024-11-08] MEDS ORDERED: NALOXONE HCL 0.4 MG/1 ML VIAL/CARP IV PRN (17:43)
[2024-11-08] MEDS ORDERED: ONDANSETRON INJ 2 MG/ML 2 ML VIAL IV PRN (17:43)
[2024-11-08] MEDS ORDERED: LACTATED RINGER'S 500 ML IV PRN (17:43)
[2024-11-08] MEDS ORDERED: NALBUPHINE HCL INJ 10 MG/ML AMP IV PRN (17:43)
[2024-11-08] MEDS ORDERED: KETOROLAC 30 MG/ML VIAL IV PRN (17:43)
[2024-11-08] MEDS ORDERED: MoRPHine SULFATE 2 MG/ML CARP IV PRN (17:43)
[2024-11-08] MEDS ORDERED: MEPERIDINE HCL 25 MG/ML CARP/VIAL IV PRN (17:43)
[2024-11-08] MEDS ORDERED: NALOXONE HCL 1 MG in SODIUM CHLORIDE 0.9% 1,000 ML IV PRN (17:43)
[2024-11-08] MEDS ORDERED: HYDROmorphone INJ 0.5 MG/0.5 ML SYR IV PRN (17:43)
[2024-11-08] MEDS ORDERED: MoRPHine SULFATE PF 1 MG/ML 10 ML AMP/VIAL INT SPINAL ONE (17:43)
[2024-11-08] MEDS ORDERED: diphenhydrAMINE 50 MG/ML VIAL IV PRN (17:43)
[2024-11-08] MEDS ORDERED: PROMETHAZINE 6.25 MG/50.25 ML BAG IV PRN (17:43)
[2024-11-08] MEDS ORDERED: NO NARCOTICS OR SEDATIVES SCH (17:45)
[2024-11-08] MEDS ORDERED: DC INTRASPINAL MORPHINE SCH (17:45)
[2024-11-08] MEDS: KETOROLAC 30 MG/ML VIAL IV SCH (18:21)
[2024-11-08] MEDS: LACTATED RINGER'S 1,000 ML IV SCH ×3 (18:22→18:29)
[2024-11-08] MEDS: ONDANSETRON INJ 2 MG/ML 2 ML VIAL IV SCH (18:23)
[2024-11-08] MEDS: SODIUM CHLORIDE 0.9% 1,000 ML IV SCH (18:29)
--- NOTE | 2024-11-08 18:44 | Anesthesiology Progress Note ---
Date of Service November 08, 2024 Anesthesia Post Procedure Vital Signs Vital Signs: Temp Pulse Resp BP Pulse Ox 11/08/24 18:39 99 11/08/24 18:39 101 H 11/08/24 18:34 98 11/08/24 18:34 101 H 11/08/24 18:34 98 H 11/08/24 18:34 124/57 L 11/08/24 18:29 97 11/08/24 18:29 99 H 11/08/24 18:24 100 11/08/24 18:24 97 H 11/08/24 18:19 98 11/08/24 18:19 94 H 11/08/24 18:15 105 H 11/08/24 18:15 103/67 11/08/24 18:14 20 11/08/24 18:14 98 11/08/24 18:14 106 H 11/08/24 18:09 99 11/08/24 18:09 110 H 11/08/24 18:04 97 11/08/24 18:04 103 H 11/08/24 18:04 99 H 143/68 H 11/08/24 18:03 102 H 93 11/08/24 18:02 20 11/08/24 17:59 107 H 97 11/08/24 17:54 110 H 132/64 96 11/08/24 17:52 20 11/08/24 17:52 113 H 92 11/08/24 17:49 101 H 100 11/08/24 17:44 102 H 143/56 H 99 11/08/24 17:42 20 11/08/24 17:39 103 H 98 11/08/24 17:37 112 H 93 11/08/24 17:34 106 H 129/62 100 11/08/24 17:29 102 H 99 11/08/24 17:24 103 H 112/56 L 100 11/08/24 17:22 20 11/08/24 17:19 98 H 97 11/08/24 17:17 107 H 91 11/08/24 17:14 102 H 119/62 100 11/08/24 17:12 36.8 C 20 11/08/24 16:05 141 H 153/65 H 11/08/24 16:04 137 H 97 11/08/24 16:00 115 H 163/74 H 11/08/24 15:59 112 H 97 11/08/24 15:58 118 H 89 L 11/08/24 15:57 111 H 159/72 H 11/08/24 15:54 108 H 95 11/08/24 15:49 117 H 98 11/08/24 15:47 120 H 173/75 H 11/08/24 15:44 117 H 98 11/08/24 15:39 120 H 98 11/08/24 15:34 128 H 97 11/08/24 15:31 116 H 177/101 H 11/08/24 15:29 114 H 97 11/08/24 15:24 110 H 97 11/08/24 15:23 119 H 89 L 11/08/24 15:19 110 H 97 11/08/24 15:18 126 H 114/75 11/08/24 15:17 120 H 89 L 11/08/24 15:14 132 H 98 11/08/24 15:09 131 H 98 11/08/24 15:04 113 H 95 11/08/24 15:00 108 H 134/65 11/08/24 14:59 114 H 95 11/08/24 14:54 109 H 95 11/08/24 14:49 107 H 95 11/08/24 14:45 109 H 120/59 L 11/08/24 14:44 110 H 96 11/08/24 14:39 113 H 96 11/08/24 14:34 103 H 95 11/08/24 14:30 36.9 C 98 H 20 113/56 L 11/08/24 14:29 98 H 96 11/08/24 14:24 86 L 11/08/24 14:24 113 H 11/08/24 14:24 104 H 97 11/08/24 14:19 96 H 95 11/08/24 14:16 107 H 137/82 11/08/24 14:14 106 H 98 11/08/24 14:09 107 H 97 11/08/24 14:04 103 H 96 11/08/24 14:00 99 H 123/64 11/08/24 13:59 102 H 94 11/08/24 13:54 103 H 95 11/08/24 13:49 95 H 97 11/08/24 13:47 103 H 120/63 11/08/24 13:44 97 H 95 11/08/24 13:39 95 H 95 11/08/24 13:34 99 H 95 11/08/24 13:29 93 H 94 11/08/24 13:24 94 H 93 11/08/24 13:23 95 H 91 11/08/24 13:19 103 H 94 11/08/24 13:16 91 H 115/67 11/08/24 13:15 110 H 91 11/08/24 13:14 92 H 92 11/08/24 13:09 94 H 92 11/08/24 13:04 92 H 93 11/08/24 13:01 93 H 104/55 L 11/08/24 12:59 93 H 94 11/08/24 12:54 97 H 94 11/08/24 12:49 96 H 94 11/08/24 12:45 96 H 108/54 L 11/08/24 12:44 96 H 94 11/08/24 12:40 105 H 112/56 L 89 L 11/08/24 12:39 102 H 96 11/08/24 12:34 111 H 110/53 L 97 11/08/24 12:29 111 H 104/54 L 96 11/08/24 12:24 115 H 106/55 L 96 11/08/24 12:22 113 H 110/57 L 11/08/24 12:20 126 H 113/58 L 11/08/24 12:19 103 H 95 11/08/24 12:18 102 H 109/59 L 11/08/24 12:16 106 H 119/63 11/08/24 12:14 93 H 11/08/24 12:14 94 H 126/62 94 11/08/24 12:13 85 121/56 L 11/08/24 12:09 89 L 11/08/24 12:09 95 H 11/08/24 12:09 114 H 96 11/08/24 12:04 102 H 93 11/08/24 12:02 109 H 88 L 11/08/24 11:59 118 H 96 11/08/24 11:56 125 H 89 L 11/08/24 11:54 112 H 95 11/08/24 11:49 107 H 93 11/08/24 11:45 117 H 87 L 11/08/24 11:44 116 H 94 11/08/24 11:39 119 H 95 11/08/24 11:34 101 H 96 11/08/24 11:33 118 H 91 11/08/24 11:29 104 H 97 11/08/24 11:24 129 H 97 11/08/24 11:21 96 H 138/79 11/08/24 11:19 125 H 97 11/08/24 11:18 106 H 87 L 11/08/24 11:17 106 H 148/90 H 11/08/24 11:14 114 H 75 L 11/08/24 11:11 105 H 86 L 11/08/24 11:09 94 H 94 11/08/24 11:05 104 H 83 L 11/08/24 11:04 121 H 86 L 11/08/24 10:59 90 11/08/24 10:59 112 H 11/08/24 10:59 102 H 97 11/08/24 10:54 145 H 97 11/08/24 10:51 121 H 181/116 H 11/08/24 10:49 132 H 96 11/08/24 10:44 111 H 85 L 11/08/24 10:39 137 H 96 11/08/24 10:37 87 89 L 11/08/24 10:34 94 H 94 11/08/24 10:29 90 11/08/24 10:29 96 H 11/08/24 10:29 106 H 95 11/08/24 10:24 95 H 94 11/08/24 10:22 106 H 87 L 11/08/24 10:20 88 137/63 11/08/24 10:19 104 H 95 11/08/24 10:16 114 H 91 11/08/24 10:14 95 H 94 11/08/24 10:09 95 H 93 11/08/24 10:04 109 H 95 11/08/24 09:59 98 H 93 11/08/24 09:54 109 H 90 11/08/24 09:50 105 H 134/89 11/08/24 09:49 117 H 95 11/08/24 09:48 108 H 85 L 11/08/24 09:44 117 H 95 11/08/24 09:42 106 H 91 11/08/24 09:39 118 H 95 11/08/24 09:37 113 H 91 11/08/24 09:34 133 H 95 11/08/24 09:29 128 H 96 11/08/24 09:27 20 11/08/24 09:27 36.9 C 20 11/08/24 09:24 125 H 95 11/08/24 09:19 111 H 94 11/08/24 09:14 111 H 96 11/08/24 09:13 121 H 87 L 11/08/24 09:09 108 H 92 11/08/24 09:08 115 H 87 L 11/08/24 09:06 107 H 143/73 H 11/08/24 09:04 115 H 92 11/08/24 09:02 115 H 82 L 11/08/24 08:59 103 H 82 L 11/08/24 08:57 114 H 85 L 11/08/24 08:54 98 H 95 11/08/24 08:52 107 H 89 L 11/08/24 08:51 113 H 161/75 H 11/08/24 08:49 115 H 95 11/08/24 08:45 109 H 90 11/08/24 08:44 118 H 97 11/08/24 08:39 119 H 87 L 11/08/24 08:35 116 H 150/68 H 11/08/24 08:34 128 H 86 L 11/08/24 08:29 139 H 98 11/08/24 08:24 129 H 91 11/08/24 08:21 106 H 142/66 H 11/08/24 08:20 105 H 193/123 H 11/08/24 08:19 111 H 94 11/08/24 08:14 113 H 93 11/08/24 08:13 114 H 89 L 11/08/24 08:09 111 H 89 L 11/08/24 08:08 113 H 89 L 11/08/24 08:05 113 H 127/62 11/08/24 08:04 116 H 92 11/08/24 08:03 114 H 91 11/08/24 07:59 125 H 95 11/08/24 07:57 133 H 91 11/08/24 07:54 118 H 95 11/08/24 07:52 122 H 87 L 11/08/24 07:49 121 H 93 11/08/24 07:44 152 H 94 11/08/24 07:39 136 H 91 11/08/24 07:35 117 H 170/70 H 09/25/25 07:34 104 H 96 11/08/24 07:33 125 H 90 11/08/24 07:32 20 11/08/24 07:29 121 H 97 11/08/24 07:24 116 H 96 11/08/24 07:22 127 H 89 L 11/08/24 07:19 116 H 149/69 H 96 11/08/24 07:15 123 H 87 L 11/08/24 07:14 117 H 95 11/08/24 07:09 115 H 92 11/08/24 07:06 20 11/08/24 07:06 37.0 C 20 11/08/24 07:05 37 C 20 11/08/24 07:04 113 H 11/08/24 07:04 115 H 134/66 95 11/08/24 06:59 138 H 92 11/08/24 06:54 134 H 96 11/08/24 06:51 123 H 88 L 11/08/24 06:49 128 H 97 11/08/24 06:44 142 H 96 11/08/24 06:39 139 H 96 11/08/24 06:34 148 H 128/61 96 11/08/24 06:29 147 H 95 11/08/24 06:24 139 H 95 11/08/24 06:19 122 H 135/75 95 11/08/24 06:14 133 H 94 11/08/24 06:13 143 H 90 11/08/24 06:09 138 H 95 11/08/24 06:04 127 H 136/81 94 11/08/24 05:59 123 H 95 11/08/24 05:54 134 H 97 11/08/24 05:49 126 H 11/08/24 05:49 129 H 140/82 96 11/08/24 05:44 129 H 96 11/08/24 05:39 123 H 94 11/08/24 05:35 118 H 108/56 L 11/08/24 05:34 126 H 95 11/08/24 05:29 122 H 97 11/08/24 05:26 36.8 C 11/08/24 05:24 127 H 96 11/08/24 05:19 108 H 100/55 L 94 11/08/24 05:14 109 H 94 11/08/24 05:09 109 H 95 11/08/24 05:04 108 H 100/51 L 95 11/08/24 04:59 111 H 95 11/08/24 04:54 129 H 95 11/08/24 04:49 122 H 124/57 L 94 11/08/24 04:44 120 H 94 11/08/24 04:39 118 H 94 11/08/24 04:34 118 H 117/56 L 94 11/08/24 04:29 121 H 94 11/08/24 04:24 121 H 94 11/08/24 04:20 126 H 131/62 11/08/24 04:19 137 H 96 11/08/24 04:14 126 H 94 11/08/24 04:09 136 H 95 11/08/24 04:04 130 H 129/62 95 11/08/24 03:59 134 H 95 11/08/24 03:54 131 H 95 11/08/24 03:49 134 H 121/59 L 95 11/08/24 03:44 131 H 95 11/08/24 03:39 139 H 95 11/08/24 03:35 37.0 C 137 H 131/65 11/08/24 03:34 138 H 94 11/08/24 03:29 126 H 95 11/08/24 03:24 125 H 94 11/08/24 03:19 111 H 99/50 L 93 11/08/24 03:14 111 H 93 11/08/24 03:09 108 H 93 11/08/24 03:04 109 H 100/50 L 93 11/08/24 02:59 112 H 94 11/08/24 02:54 117 H 94 11/08/24 02:49 115 H 108/55 L 95 11/08/24 02:44 133 H 94 11/08/24 02:39 139 H 95 11/08/24 02:34 133 H 147/72 H 94 11/08/24 02:29 129 H 94 11/08/24 02:24 127 H 93 11/08/24 02:20 125 H 134/69 11/08/24 02:19 133 H 94 11/08/24 02:14 121 H 94 11/08/24 02:09 123 H 94 11/08/24 02:04 120 H 136/67 94 11/08/24 01:59 128 H 94 11/08/24 01:54 130 H 94 11/08/24 01:50 121 H 144/72 H 11/08/24 01:49 129 H 94 11/08/24 01:44 144 H 97 11/08/24 01:39 123 H 95 11/08/24 01:34 129 H 124/61 95 11/08/24 01:29 119 H 95 11/08/24 01:24 124 H 94 11/08/24 01:19 130 H 147/70 H 98 11/08/24 01:14 137 H 95 11/08/24 01:09 139 H 96 11/08/24 01:05 137 H 130/64 11/08/24 01:04 139 H 96 11/08/24 00:59 140 H 97 11/08/24 00:54 134 H 95 11/08/24 00:50 129 H 120/58 L 11/08/24 00:49 130 H 95 11/08/24 00:44 140 H 96 11/08/24 00:39 36.9 C 137 H 96 11/08/24 00:34 125 H 144/70 H 96 11/08/24 00:29 121 H 96 11/08/24 00:24 124 H 95 11/08/24 00:19 103 H 84/46 L 94 11/08/24 00:14 101 H 94 11/08/24 00:09 106 H 93 11/08/24 00:04 105 H 93/47 L 94 11/07/24 23:59 104 H 94 11/07/24 23:54 101 H 94 11/07/24 23:49 105 H 94/50 L 95 11/07/24 23:44 110 H 95 11/07/24 23:39 113 H 95 11/07/24 23:35 123 H 128/59 L 11/07/24 23:34 129 H 96 11/07/24 23:29 128 H 96 11/07/24 23:24 117 H 96 11/07/24 23:20 115 H 123/58 L 11/07/24 23:19 110 H 94 11/07/24 23:14 109 H 94 11/07/24 23:09 117 H 95 11/07/24 23:04 116 H 122/59 L 95 11/07/24 23:00 37.0 C 11/07/24 22:59 111 H 96 11/07/24 22:54 108 H 95 11/07/24 22:49 110 H 95 11/07/24 22:44 115 H 95 11/07/24 22:39 119 H 97 11/07/24 22:35 111 H 120/59 L 11/07/24 22:34 109 H 95 11/07/24 22:29 105 H 96 11/07/24 22:24 99 H 96 11/07/24 22:19 95 11/07/24 22:19 104 H 11/07/24 22:19 96 H 104/51 L 11/07/24 22:14 97 H 94 11/07/24 22:09 91 H 95 11/07/24 22:04 94 H 106/53 L 95 11/07/24 21:59 92 H 94 11/07/24 21:54 93 H 94 11/07/24 21:49 94 H 108/53 L 96 11/07/24 21:44 102 H 96 11/07/24 21:39 106 H 94 11/07/24 21:34 115 H 129/65 93 11/07/24 21:29 108 H 95 11/07/24 21:24 108 H 97 11/07/24 21:20 110 H 113/82 11/07/24 21:19 104 H 96 11/07/24 21:14 116 H 96 11/07/24 21:09 93 H 95 11/07/24 21:04 101 H 99/54 L 96 11/07/24 20:59 100 H 94 11/07/24 20:54 101 H 94 11/07/24 20:49 103 H 101/53 L 96 11/07/24 20:45 36.9 C 11/07/24 20:44 114 H 95 11/07/24 20:39 117 H 96 11/07/24 20:34 122 H 126/65 95 11/07/24 20:29 122 H 95 11/07/24 20:24 123 H 96 11/07/24 20:19 116 H 126/64 95 11/07/24 20:14 127 H 96 11/07/24 20:09 119 H 94 11/07/24 20:04 108 H 94 11/07/24 19:59 116 H 95 11/07/24 19:54 117 H 95 11/07/24 19:49 120 H 117/74 95 11/07/24 19:44 115 H 96 11/07/24 19:39 111 H 95 11/07/24 19:35 114 H 119/56 L 11/07/24 19:34 120 H 95 11/07/24 19:29 123 H 97 11/07/24 19:24 115 H 93 11/07/24 19:21 123 H 120/75 11/07/24 19:19 116 H 94 11/07/24 19:14 122 H 94 11/07/24 19:09 126 H 96 11/07/24 19:05 37.0 C 20 11/07/24 19:04 122 H 129/73 96 11/07/24 18:59 117 H 96 11/07/24 18:54 130 H 96 11/07/24 18:50 113 H 121/65 11/07/24 18:49 118 H 96 11/07/24 18:44 115 H 97 Pain Intensity Abdomen: Pain Intensity: 5 Transfer of Care Handoff Completed per policy Notes Mental Status: alert / awake / arousable and participated in evaluation Nausea / Vomiting: adequately controlled Pain: adequately controlled Airway Patency, RR, SpO2: stable & adequate BP & HR: stable & adequate Hydration State: stable & adequate Neuraxial Anesthesia: was administered and sensory block is resolving Anesthetic Complications: no major complications apparent and Pt Satisfied with anesthetic care
[2024-11-08] MEDS ORDERED: SODIUM CHLORIDE 0.9% 100 ML IV PRN (20:16)
[2024-11-08] MEDS: DIPHTHER/TETAN/PERTUS Vaccine (Tdap, Adol/Adult) 0.5mL IM ONE (20:17)
[2024-11-08] MEDS: DOCUSATE SODIUM 100 MG CAP PO SCH (21:11)
[2024-11-08] MEDS: ACETAMINOPHEN 325 MG TAB PO SCH (23:39)
[2024-11-08] MEDS: SIMETHICONE 80 MG CHEW PO SCH (23:39)
[2024-11-09 07:34] LABS: Hematocrit (blood only) 30.7 % (37.0-47.0); Hemoglobin 10.7 g/dl (12.0-16.0); Immature Granulocytes # (auto) 0.10 K/uL (0.01-0.20); Immature Granulocytes % (auto) 0.6 %; Mean Corpuscular Hemoglobin 30.3 pg (25.0-34.0); Mean Corpuscular Volume 87.0 fL (80.0-100.0); Platelet Count 179 K/uL (130-400); RDW Standard Deviation 43.9 fL (36.4-46.3); Red Blood Count 3.53 M/uL (4.20-5.40); White Blood Count 16.33 K/ul (4.8-10.8)
[2024-11-09] MEDS: FERROUS SULFATE 325 MG TAB PO SCH (07:49)
[2024-11-09] MEDS: PRENATAL VITAMIN 1 TAB PO SCH (07:49)
[2024-11-09] MEDS ORDERED: NON-FORMULARY MEDICATION (Magnesium 100 mg Capsule) PO SCH (09:00)
[2024-11-09] MEDS ORDERED: NON-FORMULARY MEDICATION (Ferrous Sulfate [Iron] 325 mg (65 mg iron) Tablet) PO SCH (09:00)
--- NOTE | 2024-11-09 09:06 | Obstetrical Progress Note ---
Date of Service November 09, 2024 Assessment & Plan Admission and Anticipated Discharge Date Admission Date: November 07, 2024 Subjective Patient is seen and examined. She feels well, no complaints. Pain is under control with oral meds. Ambulating without dizziness Lawrence is out, has not Voided yet Tolerating regular diet with out N&V Flatus + BM none Bleeding is minimal No fever/ chills/ CP/ SOB/ N&V/ Leg pain Breast feeding without problems Vital Signs Height Weight Body Mass Index Blood Pressure Blood Pressure Position Temperature Temperature Source 5 ft 3 in 95.98 kg 37.5 113/77 Lying 36.6 C Oral 11/07/24 05:52 11/07/24 05:52 11/07/24 01:29 11/09/24 07:30 11/09/24 07:30 11/09/24 07:30 11/09/24 07:30 Pulse Rate Respiratory Rate Pulse Oximetry 75 18 99 11/09/24 07:30 11/09/24 07:30 11/09/24 07:30 PE: General: Alert, orientedx3, NAD CVS: S1S2 RRR Lungs; CTAB Abd: soft, NT, ND, BS+, fundus firm, below Umbilicus Incision/ dressing: Clean, dry, intact Perineum intact, Lochia rubra minimal Ext; NT, no edema AP: 23 yo s/p C Section, pod# 1 VSS Afebrile doing well Await bladder function Continue routine postop care Encourage ambulation, PO intake All questions were answered Results & Data Vital Signs (Past 12 Hours) Vital Signs Temp Pulse Resp BP Pulse Ox O2 Del Method 11/09/24 07:30 18 11/09/24 07:30 Room Air 11/09/24 07:30 36.6 C 75 18 113/77 90 Room Air 11/09/24 06:01 20 97 11/09/24 05:00 18 96 11/09/24 04:01 36.5 C 72 18 119/73 99 Room Air 11/09/24 03:55 18 95 11/09/24 03:00 16 96 11/09/24 02:05 16 96 11/09/24 00:58 16 98 11/09/24 00:15 134/85 11/08/24 23:57 16 97 11/08/24 23:40 36.6 C 90 20 151/90 H 98 Room Air 11/08/24 23:00 18 96 11/08/24 22:06 18 97 11/08/24 21:09 18 100
[2024-11-09] MEDS: FAMOTIDINE 10 MG TABLET PO SCH (09:11)
[2024-11-09] MEDS: NALOXONE HCL 0.08 MG in SYRINGE 1.8 ML IV PRN (09:35)
[2024-11-09] MEDS ORDERED: diphenhydrAMINE 50 MG/ML VIAL IV PRN (11:43)
[2024-11-09] MEDS ORDERED: HYDROmorphone INJ 0.5 MG/0.5 ML SYR IV PRN (11:43)
[2024-11-09] MEDS ORDERED: diphenhydrAMINE Capsule 25 MG CAP PO PRN (11:43)
[2024-11-09] MEDS ORDERED: PROMETHAZINE 12.5 MG/50.5 ML BAG IV PRN (11:43)
[2024-11-09] MEDS ORDERED: ONDANSETRON INJ 2 MG/ML 2 ML VIAL IV PRN (11:43)
[2024-11-09] MEDS ORDERED: KETOROLAC 30 MG/ML VIAL IV PRN (17:21)
[2024-11-09] MEDS: IBUPROFEN 600 MG TAB PO SCH (17:50)
[2024-11-09] MEDS: CALCIUM CARBONATE 500 MG CHEWABLE TAB PO PRN (17:54)
[2024-11-10 06:44] LABS: Hematocrit (blood only) 27.7 % (37.0-47.0); Hemoglobin 9.6 g/dl (12.0-16.0); Immature Granulocytes # (auto) 0.08 K/uL (0.01-0.20); Immature Granulocytes % (auto) 0.7 %; Mean Corpuscular Hemoglobin 30.2 pg (25.0-34.0); Mean Corpuscular Volume 87.1 fL (80.0-100.0); Platelet Count 240 K/uL (130-400); RDW Standard Deviation 44.0 fL (36.4-46.3); Red Blood Count 3.18 M/uL (4.20-5.40); White Blood Count 12.05 K/ul (4.8-10.8)
--- NOTE | 2024-11-10 09:14 | Obstetrical Progress Note ---
Date of Service November 10, 2024 Subjective Ambulation: ambulating normally Voiding: no voiding problems Passing Gas:: Yes Diet Tolerance:: regular diet Lochia:: Small Feeding Type:: breast feeding Current Pain Level(1-10): 0 doing well Physical Exam Constitutional WD/WN, vitals as above Gastrointestinal (Abdomen) Inspection/Auscultation: abdomen normal to inspection (incision c/d/i) Musculoskeletal Extremities: extremities normal to inspection Skin no rashes, warm and dry Neurologic patellar DTR's 2+ bilat, sensation intact Psychiatric A+Ox3, euthymic affect Results & Data Vital Signs (Past 12 Hours) Vital Signs Temp Pulse Resp BP Pulse Ox O2 Del Method 11/09/24 23:23 36.3 C L 80 18 119/75 99 Room Air Laboratory Results Laboratory Results - last 72 hr 11/07/24 11/09/24 11/10/24 02:21 07:10 06:04 WBC 16.33 H 12.05 H RBC 3.53 L 3.18 L Hgb 10.7 L 9.6 L Hct 30.7 L 27.7 L MCV 87.0 87.1 MCH 30.3 30.2 MCHC 34.9 34.7 RDW Std Deviation 43.9 44.0 RDW Coeff of Mg 14.0 13.9 Plt Count 179 240 MPV 10.5 10.6 Immature Gran % (Auto) 0.6 0.7 Neut % (Auto) 80.2 60.1 Lymph % (Auto) 12.9 30.5 [place] % (Auto) 6.1 5.7 Eos % (Auto) 0.0 2.7 Baso % (Auto) 0.2 0.3 Neut # (Auto) 13.09 H 7.25 H Lymph # (Auto) 2.11 3.67 H [place] # (Auto) 0.99 H 0.69 H Eos # (Auto) 0.00 0.32 Baso # (Auto) 0.04 0.04 Immature Gran # (Auto) 0.10 0.08 Blood Type A Negative Antibody Screen Cancelled Screen Negative Crossmatch See Detail See Detail
[2024-11-10] MEDS: IBUPROFEN 600 MG TAB PO PRN (19:52)
[2024-11-11 00:09] VITALS: O2SAT 97
[2024-11-11] MEDS: ACETAMINOPHEN 325 MG TAB PO PRN (01:56)
[2024-11-11 08:31] VITALS: PULSE 82; RESP 16; TEMP 98.2
[2024-11-11] MEDS ORDERED: TYLENOL #3 HOME PACK PO PRN ×2 (09:45→10:09)
--- NOTE | 2024-11-11 10:07 | Obstetrical Progress Note ---
Date of Service November 11, 2024 Subjective Ambulation: ambulating normally Voiding: no voiding problems Passing Gas:: Yes Diet Tolerance:: regular diet Lochia:: Small Feeding Type:: breast feeding Current Pain Level(1-10): 0 doing well. feels much better today. plans for d/c today. Physical Exam Constitutional WD/WN, vitals as above Gastrointestinal (Abdomen) Inspection/Auscultation: abdomen normal to inspection incision c/d/i. abdomen soft and non-tender. fundus firm below U. Musculoskeletal Extremities: extremities normal to inspection Skin no rashes, warm and dry Neurologic patellar DTR's 2+ bilat, sensation intact Psychiatric A+Ox3, euthymic affect Results & Data Vital Signs (Past 12 Hours) Vital Signs Temp Pulse Resp BP BP Pulse Ox O2 Del Method 11/11/24 08:10 36.8 C 82 16 125/87 97 Room Air 11/10/24 23:15 36.7 C 87 18 122/81 97 Room Air Laboratory Results 11/07/24 11/09/24 11/10/24 02:21 07:10 06:04 WBC 9.40 16.33 H 12.05 H RBC 3.96 L 3.53 L 3.18 L Hgb 11.7 L 10.7 L 9.6 L Hct 34.8 L 30.7 L 27.7 L MCV 87.9 87.0 87.1 MCH 29.5 30.3 30.2 MCHC 33.6 34.9 34.7 RDW Std Deviation 43.8 43.9 44.0 RDW Coeff of Mg 13.7 14.0 13.9 Plt Count 205 179 240 MPV 11.0 10.5 10.6 Immature Gran % (Auto) 0.6 0.7 Neut % (Auto) 80.2 60.1 Lymph % (Auto) 12.9 30.5 [place] % (Auto) 6.1 5.7 Eos % (Auto) 0.0 2.7 Baso % (Auto) 0.2 0.3 Neut # (Auto) 13.09 H 7.25 H Lymph # (Auto) 2.11 3.67 H [place] # (Auto) 0.99 H 0.69 H Eos # (Auto) 0.00 0.32 Baso # (Auto) 0.04 0.04 Immature Gran # (Auto) 0.10 0.08 Sodium 136 Potassium 3.5 Chloride 105 Carbon Dioxide 22 Anion Gap 9 BUN 11 Creatinine 0.57 L Est Cr Clr Drug Dosing 169.2 eGFR 130.87 BUN/Creatinine Ratio 19.3 Glucose 90 Calcium 9.9 Total Bilirubin 0.3 AST 14 ALT 6 L Alkaline Phosphatase 146 H Total Protein 6.3 Albumin 3.4 Globulin 2.9 Albumin/Globulin Ratio 1.2 Treponema pallidum Ab Negative Blood Type A Negative A Negative Antibody Screen NEGATIVE Cancelled Screen Negative Crossmatch See Detail See Detail
[2024-11-11 10:50] VITALS: BP 122/81
== END 2024-11-11 13:14 | disposition home or self-care (01) | DRG 788 ==
LOC: OPB 01:07 → 4S1 01:10 → 4E2 11-08 20:19